=== PATIENT | female | born 1980 | race Caucasian/White ===

== ENCOUNTER 2017-01-19 08:03 | Emergency (ER) | payer MEDICARE, OTHER | END 2017-01-19 09:54 | disposition home or self-care (01) | LOC: ER 08:03 | DX: F41.1 Generalized anxiety disorder (principal); I48.91 Unspecified atrial fibrillation; I50.9 Heart failure, unspecified; I77.1 Stricture of artery; Q25.6 Stenosis of pulmonary artery; Q22.4 Congenital tricuspid stenosis; Z79.899 Other long term (current) drug therapy ==